=== PATIENT | female | born 1935 | race Caucasian/White ===

== ENCOUNTER 2018-12-15 23:05 | Inpatient (IN) | payer MEDICARE ==
[~2018-12-15] VITALS: Ht 160 cm; Wt 49.9 kg
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
[2018-12-16] MEDS ORDERED: LORAZEPAM 0.5 MG TABLET PO PRN (00:30)
[2018-12-16] MEDS ORDERED: ACETAMINOPHEN 325 MG TABLET PO PRN (00:30)
[2018-12-16] MEDS ORDERED: MAG HYDROX/AL HYDROX/SIMETH 30 ML UDC PO PRN (00:30)
[2018-12-16] MEDS ORDERED: BLOOD SUGAR DIAGNOSTIC 1 EACH STRIP IN ONE (00:30)
[2018-12-16] MEDS ORDERED: MAGNESIUM HYDROXIDE 30 ML UDC PO PRN (00:30)
[2018-12-16] MEDS ORDERED: TEMAZEPAM 7.5 MG CAPSULE PO PRN (00:30)
[2018-12-16] MEDS ORDERED: MAGN400T26 PO (00:43)
[2018-12-16] MEDS ORDERED: ASPI-605 PO (00:44)
[2018-12-16] MEDS ORDERED: DESV50TA PO (00:45)
[2018-12-16] MEDS ORDERED: LEVO125T8 PO (00:47)
[2018-12-16] MEDS ORDERED: RANI300T4 PO (00:48)
[2018-12-16] MEDS ORDERED: OLME20TA23 PO (00:50)
[2018-12-16] MEDS ORDERED: CYAN-51 PO (00:51)
[2018-12-16] MEDS ORDERED: CHOL200026 PO (00:51)
[2018-12-16] MEDS ORDERED: ESOM20CA PO (00:52)
[2018-12-16 02:06] VITALS: BP 127/69
[2018-12-16] MEDS ORDERED: ESOMEPRAZOLE MAG TRIHYDRATE 20 MG CAPSULE.DR PO SCH (07:00)
[2018-12-16 08:00] VITALS: BP 120/66
[2018-12-16] MEDS: LEVOTHYROXINE SODIUM 125 MCG TABLET PO SCH (08:25)
[2018-12-16] MEDS: ASPIRIN EC 81 MG TABLET.DR PO SCH (08:26)
[2018-12-16] MEDS: CHOLECALCIFEROL 1,000 UNIT TABLET (VIT D3) PO SCH (08:26)
[2018-12-16] MEDS: CYANOCOBALAMIN 500 MCG TABLET PO SCH (08:26)
[2018-12-16] MEDS: PANTOPRAZOLE 40 MG TABLET.DR PO SCH (08:52)
[2018-12-16] MEDS: LOSARTAN POTASSIUM 50 MG TABLET PO SCH (08:52)
[2018-12-16] MEDS: MAGNESIUM OXIDE 400 MG TABLET PO SCH (08:52)
--- NOTE | 2018-12-16 15:50 | NUR ---
Group Note: SW went to patient's room to invite patient to attend today's support group at 2:45pm in the activities room, regarding positive coping mechanisms. Patient presented laying on her bed sleeping. SW attempted to wake patient but they remained sleeping.
[2018-12-16 16:00] VITALS: BP 111/65
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
[2018-12-16 20:16] VITALS: BP 99/50
[2018-12-16] MEDS: FAMOTIDINE (20 MG) 20 MG TABLET PO SCH (22:21)
[2018-12-17 00:55] LABS: APPEARANCE,URINE CLEAR (CLEAR); BILIRUBIN,URINE NEGATIVE (NEGATIVE); BLOOD, URINE NEGATIVE Ery/uL (NEGATIVE); COLOR,URINE YELLOW (YELLOW); KETONES,URINE 1+ (NEGATIVE); LEUKOCYTE ESTERASE ,URINE TRACE (NEGATIVE); NITRITE, URINE NEGATIVE (NEGATIVE); PH,URINE 6.5 (5.0-8.0); PROTEIN,URINE NEGATIVE (NEGATIVE); UGLUCOSE NEGATIVE (NEGATIVE); UROBILINOGEN,URINE 0.2 EU/dL (0.2)
[2018-12-17 01:19] LABS: BACTERIA,URINE Few /HPF (None Seen); RBC,URINE 0-2 /HPF (0-2); SQUAMOUS EPITHELIAL CELL,UR Few /HPF (None Seen)
[2018-12-17 06:49] LABS: BASOPHILS % (AUTO) 0.6 % (0.0-2.0); EOSINOPHILS % (AUTO) 2.9 % (0.0-6.0); HEMATOCRIT 39 % (33-45); HEMOGLOBIN 12.6 g/dL (11.5-14.8); LYMPHOCYTES # (AUTO) 1.4 /CMM (0.8-4.8); LYMPHOCYTES % (AUTO) 31.6 % (20.0-44.0); MEAN CORPUSCULAR HGB CONC 33 g/dl (31.0-36.0); MEAN CORPUSCULAR VOLUME 89 fL (82-100); MONOCYTES # (AUTO) 0.4 /CMM (0.1-1.30); MONOCYTES % (AUTO) 8.6 % (2.0-12.0); NEUTROPHILS # (AUTO) 2.5 /CMM (1.8-8.9); NEUTROPHILS % (AUTO) 56.3 % (43.0-81.0); PLATELET COUNT (AUTO) 165 /CMM (150-450); RED BLOOD CELL COUNT(AUTO) 4.33 MIL/uL (4.0-5.2); WHITE BLOOD COUNT (AUTO) 4.5 K/uL (4.3-11.0)
[2018-12-17 06:50] LABS: CALCIUM, SERUM 9.1 mg/dL (8.5-10.1); CREATININE 0.7 mg/dL (0.6-1.3)
[2018-12-17 07:05] LABS: THYROID STIMULATING HORMONE 0.047 uIU/mL (0.358-3.74)
[2018-12-17 08:00] VITALS: BP 129/64
[2018-12-17] MEDS: MAGNESIUM OXIDE 400 MG TABLET PO SCH (08:39)
[2018-12-17] MEDS: CHOLECALCIFEROL 1,000 UNIT TABLET (VIT D3) PO SCH (08:40)
[2018-12-17] MEDS: LEVOTHYROXINE SODIUM 125 MCG TABLET PO SCH (08:40)
--- NOTE | 2018-12-17 08:40 | NUR ---
SW received a call from pts daughter in law Cassandra at bedside [phone] who requested a call from psychiatrist Dr. Suarez to discuss pts diagnoses and treatment. Cassandra also discussed placement options for pt as she stated that pt is unable to live on her own due to her current financial situation. SAIRA explained that if pt refuses alternative placement SW is unable to force pt to discharge to an alternative placement because pt is currently making decisions for herself. Daughter in law understood.
[2018-12-17] MEDS: ASPIRIN EC 81 MG TABLET.DR PO SCH (08:41)
[2018-12-17] MEDS: LOSARTAN POTASSIUM 50 MG TABLET PO SCH (08:41)
[2018-12-17] MEDS: CYANOCOBALAMIN 500 MCG TABLET PO SCH (08:41)
[2018-12-17] MEDS: PANTOPRAZOLE 40 MG TABLET.DR PO SCH (08:42)
[2018-12-17] MEDS: DULOXETINE HCL 30 MG CAPSULE.DR PO SCH (08:49)
--- NOTE | 2018-12-17 10:20 | NUR ---
INITIAL DISCHARGE NOTE: Patient wishes to return home [address] [facility] [address] . SAIRA will help form a safe and proper discharge in collaboration with MD and daughter in law Cassandra [phone].
--- NOTE | 2018-12-17 11:08 | NUR ---
INDIVIDUAL SESSION: SW discussed discharge plan and home environment with pt, pt stated that she wishes to return home as she feels safe there and stated that she does not feel safe anywhere else. Pt stated that she does not wish to be discharged to a SNF and or any other place. Pt also mentioned that she is not being manipulated, coerced, or scammed and that she is just a victim if identify fraud. SW discussed pts treatment and current feelings of depression. Pt appears depressed with sad affect and is withdrawn and isolative. Pt has been sleeping all day and has not been visible on the unit. Pt stated that she just wants to sleep and stay in her room as she does not feel safe being out in the unit. SW encouraged pt to attend group and participate in group milieu as that is part of her treatment while in the hospital and will help her get discharged quicker. Pt stated that she just wanted to go home already and will think about attending group.
--- NOTE | 2018-12-17 14:40 | NUR ---
SW received a call from pts daughter in law Cassandra at bedside [phone] informing SW that tomorrow 12/18/18 her and a private healthcare business performance manager will be coming at 5:00pm to talk to pt.
[2018-12-17 16:00] VITALS: BP 104/57
[2018-12-17] MEDS: LEVOFLOXACIN (500MG) 500 MG TABLET PO SCH (16:20)
[2018-12-17 20:20] VITALS: BP 95/71
[2018-12-17] MEDS: FAMOTIDINE (20 MG) 20 MG TABLET PO SCH (21:32)
[2018-12-18 08:00] VITALS: BP 113/63
[2018-12-18] MEDS: CHOLECALCIFEROL 1,000 UNIT TABLET (VIT D3) PO SCH (08:50)
[2018-12-18] MEDS: PANTOPRAZOLE 40 MG TABLET.DR PO SCH (08:50)
[2018-12-18] MEDS: DULOXETINE HCL 30 MG CAPSULE.DR PO SCH (08:50)
[2018-12-18] MEDS: MAGNESIUM OXIDE 400 MG TABLET PO SCH (08:50)
[2018-12-18] MEDS: ASPIRIN EC 81 MG TABLET.DR PO SCH (08:50)
[2018-12-18] MEDS: CYANOCOBALAMIN 500 MCG TABLET PO SCH (08:51)
[2018-12-18] MEDS: LOSARTAN POTASSIUM 50 MG TABLET PO SCH (08:51)
--- NOTE | 2018-12-18 08:59 | NUR ---
RN NOTE: CJ MISSING LEVOTHYROXINE. INFORMED PHARMACY. AWAITING MEDICATION ARRIVAL TO ADMINISTER.
[2018-12-18] MEDS: LEVOTHYROXINE SODIUM 112 MCG TABLET PO SCH (10:17)
[2018-12-18 16:00] VITALS: BP 121/71
--- NOTE | 2018-12-18 16:26 | NUR ---
GROUP NOTE: SW encourage pt to participate in group therapy on this present day discussing the topic of "support systems." Pt was asleep and was not easily aroused.
[2018-12-18] MEDS: LEVOFLOXACIN (500MG) 500 MG TABLET PO SCH (16:33)
--- NOTE | 2018-12-18 17:29 | NUR ---
RN NOTE: CONTACTED DR STEVENS AND INFORMED HER TO VISIT THE PATIENT TOMORROW.
[2018-12-18 20:00] VITALS: BP 98/60
[2018-12-18 21:09] VITALS: BP 98/60
[2018-12-18] MEDS: FAMOTIDINE (20 MG) 20 MG TABLET PO SCH (21:35)
[2018-12-19 08:00] VITALS: BP 102/58
[2018-12-19] MEDS: PANTOPRAZOLE 40 MG TABLET.DR PO SCH (08:16)
[2018-12-19] MEDS: CHOLECALCIFEROL 1,000 UNIT TABLET (VIT D3) PO SCH (08:16)
[2018-12-19] MEDS: MAGNESIUM OXIDE 400 MG TABLET PO SCH (08:16)
[2018-12-19] MEDS: DULOXETINE HCL 30 MG CAPSULE.DR PO SCH (08:16)
[2018-12-19] MEDS: CYANOCOBALAMIN 500 MCG TABLET PO SCH (08:16)
[2018-12-19] MEDS: LOSARTAN POTASSIUM 50 MG TABLET PO SCH (08:17)
[2018-12-19] MEDS: ASPIRIN EC 81 MG TABLET.DR PO SCH (08:17)
[2018-12-19] MEDS: LEVOTHYROXINE SODIUM 112 MCG TABLET PO SCH (08:28)
[2018-12-19] MEDS: LEVOFLOXACIN (500MG) 500 MG TABLET PO SCH (15:16)
[2018-12-19 16:00] VITALS: BP 112/57
[2018-12-19 20:54] VITALS: BP 108/68
[2018-12-19] MEDS: FAMOTIDINE (20 MG) 20 MG TABLET PO SCH (21:36)
[2018-12-20 08:00] VITALS: BP 114/68
[2018-12-20] MEDS: ASPIRIN EC 81 MG TABLET.DR PO SCH (08:39)
[2018-12-20] MEDS: PANTOPRAZOLE 40 MG TABLET.DR PO SCH (08:39)
[2018-12-20] MEDS: LOSARTAN POTASSIUM 50 MG TABLET PO SCH (08:40)
[2018-12-20] MEDS: CHOLECALCIFEROL 1,000 UNIT TABLET (VIT D3) PO SCH (08:41)
[2018-12-20] MEDS: MAGNESIUM OXIDE 400 MG TABLET PO SCH (08:41)
[2018-12-20] MEDS: CYANOCOBALAMIN 500 MCG TABLET PO SCH (08:41)
[2018-12-20] MEDS: DULOXETINE HCL 30 MG CAPSULE.DR PO SCH (08:41)
[2018-12-20] MEDS: LEVOTHYROXINE SODIUM 112 MCG TABLET PO SCH (08:43)
[2018-12-20 10:00] VITALS: BP 114/68
[2018-12-20 16:00] VITALS: BP 120/59
--- NOTE | 2018-12-20 17:43 | NUR ---
GPS RN NOTE PATIENT EATING IN DINING GOYAL, SOCIALIZING. PATIENT IN NO ACUTE DISTRESS. WILL CONTINUE TO MONITOR.
--- NOTE | 2018-12-20 19:00 | NUR ---
GPS RN NOTE HEARING AID IN PATIENTS RIGHT AND LEFT EAR. ENDORSED TO CHARGE BOTH HEARING AIDS AT NIGHT TO BEE WORKER NURSE.
--- NOTE | 2018-12-20 19:30 | NUR ---
GPS RN NOTE, RECEIVED PATIENT AWAKE AND IN JANAE CHAIR, NO S/S OR COMPLAINTS OF PAIN AT THIS TIME. PATIENT IS DISPLAYING NO S/S OF APPARENT DISTRESS AT THIS TIME. PATIENT BREATHING IS UNLABORED WITH EQUAL RISE AND FALL OF THE CHEST. PATIENT IS ALERT AND ORIENTED X 3 ON ROOM AIR WITH A SPO2 99 %. PATIENT IS COMPLIANT WITH MEDICATION, DISORGANIZED, CALM, COOPERATIVE. PATIENT DENIES SUICIDE IDEATIONS AND HOMICIDAL IDEATIONS AT THIS TIME. PATIENT ASSISTED WITH TURNING AND REPOSITIONING Q2 HR AND PRN FOR COMFORT AND CIRCULATION. PATIENT HAS NO NEEDS AT THIS TIME. PATIENT EDUCATED ON THE USE OF THE CALL ALVARADO. PATIENT BED SIDE RAILS UP X 2 FOR SAFETY, BED IS LOCKED AND LOW. WILL CONTINUE TO MONITOR Q15 MIN WITH THE HELP OF STAFF TO MAINTAIN SAFETY.
[2018-12-20 21:23] VITALS: BP 103/65
[2018-12-20] MEDS: FAMOTIDINE (20 MG) 20 MG TABLET PO SCH (22:08)
[2018-12-21 08:00] VITALS: BP 127/64
[2018-12-21] MEDS: DULOXETINE HCL 30 MG CAPSULE.DR PO SCH (09:26)
[2018-12-21] MEDS: CHOLECALCIFEROL 1,000 UNIT TABLET (VIT D3) PO SCH (09:26)
[2018-12-21] MEDS: PANTOPRAZOLE 40 MG TABLET.DR PO SCH (09:26)
[2018-12-21] MEDS: ASPIRIN EC 81 MG TABLET.DR PO SCH (09:27)
[2018-12-21] MEDS: CYANOCOBALAMIN 500 MCG TABLET PO SCH (09:27)
[2018-12-21] MEDS: LEVOTHYROXINE SODIUM 112 MCG TABLET PO SCH (09:38)
[2018-12-21] MEDS: MAGNESIUM OXIDE 400 MG TABLET PO SCH (09:38)
[2018-12-21] MEDS: LOSARTAN POTASSIUM 50 MG TABLET PO SCH (11:40)
--- NOTE | 2018-12-21 12:37 | NUR ---
INTERVENTION: SW and psychiatrist Dr. Suarez spoke with pt regarding her treatment and discharge plan. Pt agreed to take an antipsychotic and also agreed to a short term SNF placement as pt is currently unable to make decisions on her own and is unable to live alone at the moment as her bank has frozen all of her accounts and she currently has no source of income. Pt agreed to be discharged to a SNF as long as she is able to return to her home once she's stable and her son and daughter in law have helped her with her finances. Pt appeared with disorganized thought process but was cooperative and engaged in conversation.
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
--- NOTE | 2018-12-21 14:27 | NUR ---
COOPERATIVE,SOCIALIZING,COMPLIANT. IN RM.
--- NOTE | 2018-12-21 15:30 | NUR ---
GROUP NOTE: SW encourage pt to participate in group therapy in this present day discussing the topic of "reality-testing." Pt was in the shower and unable to participate.
[2018-12-21 16:00] VITALS: BP 130/75
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
[2018-12-21 20:21] VITALS: BP 122/67
[2018-12-21] MEDS: FAMOTIDINE (20 MG) 20 MG TABLET PO SCH (21:22)
[2018-12-21] MEDS: QUETIAPINE FUMARATE 25 MG TABLET PO SCH (21:22)
[2018-12-22 08:00] VITALS: BP 106/57
[2018-12-22] MEDS: LOSARTAN POTASSIUM 50 MG TABLET PO SCH (09:00)
--- NOTE | 2018-12-22 09:28 | NUR ---
SW received a call from pts daughter in law Trujillo at bedside [phone] who provided SW with a list of SNF's she woudl like SW to refer pt to. SAIRA faxed SNF referrals to the following: [facility] [address] [place], [place] [id number] [facility] [address] [place], [place] [id number] [facility] [address] [place] [address] [facility] [address] [place] [address] [facility] [address] [place] [address] [facility] [address] [place] [address]
--- NOTE | 2018-12-22 09:43 | NUR ---
SAIRA contacted JAE Toussaint Claims Director to the Commercial Crimes Division and Financial Crime Section at [facility] [place] [facility] Address: [address] [place] [address] who confirmed she is currently investigating.
--- NOTE | 2018-12-22 11:08 | NUR ---
SW received a call from Teri, public relations coordinator at [facility] [address] [place] [address] stating that she is unable to take pt as there are currently no beds available in the facility.
--- NOTE | 2018-12-22 11:23 | NUR ---
SW received a call from Erika, media coordinator at [facility] [id number] [place] [address] stating that currently the facility [facility]ake snot have nay female beds available.
[2018-12-22] MEDS: PANTOPRAZOLE 40 MG TABLET.DR PO SCH (11:38)
[2018-12-22] MEDS: CYANOCOBALAMIN 500 MCG TABLET PO SCH (11:38)
--- NOTE | 2018-12-22 11:38 | NUR ---
SAIRA contacted pts daughter in law Cassandra at bedside [phone] and informed her pts PROBABLE CAUSE hearing has been moved up to 1230 on this present day. Cassandra stated she and pts son Michael will be attending.
[2018-12-22] MEDS: ASPIRIN EC 81 MG TABLET.DR PO SCH (11:39)
[2018-12-22] MEDS: MAGNESIUM OXIDE 400 MG TABLET PO SCH (11:39)
[2018-12-22] MEDS: CHOLECALCIFEROL 1,000 UNIT TABLET (VIT D3) PO SCH (11:39)
[2018-12-22] MEDS: DULOXETINE HCL 30 MG CAPSULE.DR PO SCH (11:39)
[2018-12-22] MEDS: LEVOTHYROXINE SODIUM 112 MCG TABLET PO SCH (11:51)
--- NOTE | 2018-12-22 15:37 | NUR ---
Group Note: SW encouraged the pt to participate in group therapy on 12/22/18 at 2pm discussing the topic of discharge planning. Pt stated that she did not want to engage in group therapy because she was exhausted and already had a "meeting" to discuss that earlier in the day. The SW stated that was her probable cause hearing but the pt stated that she does not need group.
[2018-12-22 16:00] VITALS: BP 100/59
[2018-12-22 20:03] VITALS: BP 110/58
[2018-12-22] MEDS: QUETIAPINE FUMARATE 25 MG TABLET PO SCH (21:00)
[2018-12-22] MEDS: FAMOTIDINE (20 MG) 20 MG TABLET PO SCH (21:00)
[2018-12-23] MEDS: PANTOPRAZOLE 40 MG TABLET.DR PO SCH (07:28)
[2018-12-23] MEDS: LEVOTHYROXINE SODIUM 112 MCG TABLET PO SCH (07:28)
[2018-12-23 08:00] VITALS: BP 110/58
[2018-12-23] MEDS: CYANOCOBALAMIN 500 MCG TABLET PO SCH (08:41)
[2018-12-23] MEDS: DULOXETINE HCL 30 MG CAPSULE.DR PO SCH (08:41)
[2018-12-23] MEDS: MAGNESIUM OXIDE 400 MG TABLET PO SCH (08:41)
[2018-12-23] MEDS: LOSARTAN POTASSIUM 50 MG TABLET PO SCH (08:42)
[2018-12-23] MEDS: ASPIRIN EC 81 MG TABLET.DR PO SCH (08:42)
[2018-12-23] MEDS: CHOLECALCIFEROL 1,000 UNIT TABLET (VIT D3) PO SCH (08:42)
--- NOTE | 2018-12-23 10:15 | NUR ---
SW contacted Sherice, social work coordinator at [facility] [id number] [place] [address] who stated facility is currently full and does not have any beds available.
--- NOTE | 2018-12-23 10:16 | NUR ---
SW contacted Jordyn, early childhood education coordinator [facility] [address] [place] [address] stating that she needs to speak to the DON and administration to see if pt can be accepted.
--- NOTE | 2018-12-23 10:29 | NUR ---
SAIRA faxed SNF referral to Dequan, health services coordinator at [facility] Address: [address] [facility], [place] [address] for review.
--- NOTE | 2018-12-23 11:23 | NUR ---
SW received a call from Luz, erosion control coordinator at [facility] Address: [address] [place] [address] stating the facility cannot accept pt.
--- NOTE | 2018-12-23 11:51 | NUR ---
SAIRA faxed SNF referral to Rekha, patient appointment coordinator at [facility] Address: [address] [facility], [place] [address] for review.
--- NOTE | 2018-12-23 14:45 | NUR ---
SW received a call from Rekha, residential coordinator at [facility] Address: [address] [facility], [place] [address] stating that jessica Mckeon will be coming on Friday to assess the pt.
[2018-12-23 16:00] VITALS: BP 101/91
[2018-12-23 20:26] VITALS: BP 100/50
[2018-12-23] MEDS: FAMOTIDINE (20 MG) 20 MG TABLET PO SCH (21:14)
[2018-12-23] MEDS: QUETIAPINE FUMARATE 25 MG TABLET PO SCH (21:14)
[2018-12-24] MEDS: PANTOPRAZOLE 40 MG TABLET.DR PO SCH (07:38)
[2018-12-24] MEDS: LEVOTHYROXINE SODIUM 112 MCG TABLET PO SCH (07:38)
[2018-12-24 08:00] VITALS: BP 100/53
[2018-12-24] MEDS: DULOXETINE HCL 30 MG CAPSULE.DR PO SCH (08:26)
[2018-12-24] MEDS: CHOLECALCIFEROL 1,000 UNIT TABLET (VIT D3) PO SCH (08:26)
[2018-12-24] MEDS: MAGNESIUM OXIDE 400 MG TABLET PO SCH (08:26)
[2018-12-24] MEDS: CYANOCOBALAMIN 500 MCG TABLET PO SCH (08:27)
[2018-12-24] MEDS: ASPIRIN EC 81 MG TABLET.DR PO SCH (08:27)
[2018-12-24] MEDS: LOSARTAN POTASSIUM 50 MG TABLET PO SCH (08:27)
--- NOTE | 2018-12-24 11:21 | NUR ---
SAIRA called Layla ([phone]) from [facility] and stated that the notes in the system show that the pt is not suicidal and the pt would be appropriate for their facility. She stated that she is willing to consider the pt but would like notes to be faxed over.
--- NOTE | 2018-12-24 11:22 | NUR ---
SAIRA faxed a referral to [facility] with attention to Layla to the fax number: [phone].
--- NOTE | 2018-12-24 15:32 | NUR ---
Group Note: SW encouraged pt to attend group therapy on 12/24/18 at 2:30pm discussing anger management for when they are in the hospital and for once they are discharged but the pt was unable to attend. Pt is sleeping and is not easily aroused.
[2018-12-24 16:00] VITALS: BP 120/60
[2018-12-24 20:00] VITALS: BP 121/71
[2018-12-24] MEDS: FAMOTIDINE (20 MG) 20 MG TABLET PO SCH (21:23)
[2018-12-24] MEDS: QUETIAPINE FUMARATE 25 MG TABLET PO SCH (21:23)
[2018-12-25 08:00] VITALS: BP 131/75
[2018-12-25] MEDS: CYANOCOBALAMIN 500 MCG TABLET PO SCH (09:09)
[2018-12-25] MEDS: CHOLECALCIFEROL 1,000 UNIT TABLET (VIT D3) PO SCH (09:09)
[2018-12-25] MEDS: LEVOTHYROXINE SODIUM 112 MCG TABLET PO SCH (09:09)
[2018-12-25] MEDS: ASPIRIN EC 81 MG TABLET.DR PO SCH (09:10)
[2018-12-25] MEDS: PANTOPRAZOLE 40 MG TABLET.DR PO SCH (09:10)
[2018-12-25] MEDS: DULOXETINE HCL 30 MG CAPSULE.DR PO SCH (09:10)
[2018-12-25] MEDS: MAGNESIUM OXIDE 400 MG TABLET PO SCH (09:10)
[2018-12-25] MEDS: LOSARTAN POTASSIUM 50 MG TABLET PO SCH (09:11)
--- NOTE | 2018-12-25 11:44 | NUR ---
Cassandra ([phone]), pts daughter in law, called the SW and stated that the pt should be assessed by [facility] today and that they are not looking into [place] as a placement option and would rather have a referral sent out to [facility].
--- NOTE | 2018-12-25 12:56 | NUR ---
William ([phone]) from [facility] came to assess the pt due to the history and physical stating that the pt had made a prior suicide attempt. SW stated that the attempt was made 50 years ago and that she has been a pleasant pt since being hospitalized. Once they assessed the pt, they stated that she seemed appropriate for their facility and once they speak to their networking administrator and will inform the SW once they make a decision.
--- NOTE | 2018-12-25 13:00 | NUR ---
SW called Cassandra ([phone]), pts daughter in law and informed her that the pt was assessed by [facility] and they were fairly positive that the pt will be accepted.
--- NOTE | 2018-12-25 13:56 | NUR ---
Linda ([phone]) from [facility] contacted the SW and stated that the pt was accepted to their facility. SW stated that the pt will be discharged their facility on Friday.
--- NOTE | 2018-12-25 14:02 | NUR ---
SAIRA called Cassandra ([phone]), pts daughter in law, and informed her that the pt was accepted to [facility].
[2018-12-25 16:00] VITALS: BP 129/79
--- NOTE | 2018-12-25 18:47 | NUR ---
GPS/RN-NOTES X2 HEARING AID WITH THE PATIENT AT THIS TIME, WILL ENDORSE TO INCOMING NURSE FOR CONTINUITY OF CARE.
[2018-12-25 20:58] VITALS: BP 116/75
[2018-12-25] MEDS: DONEPEZIL 5 MG TABLET PO SCH (21:18)
[2018-12-25] MEDS: QUETIAPINE FUMARATE 25 MG TABLET PO SCH (21:18)
[2018-12-25] MEDS: FAMOTIDINE (20 MG) 20 MG TABLET PO SCH (21:20)
[2018-12-26 08:00] VITALS: BP 105/56
[2018-12-26] MEDS: CHOLECALCIFEROL 1,000 UNIT TABLET (VIT D3) PO SCH (08:37)
[2018-12-26] MEDS: DULOXETINE HCL 30 MG CAPSULE.DR PO SCH (08:37)
[2018-12-26] MEDS: LEVOTHYROXINE SODIUM 112 MCG TABLET PO SCH (08:37)
[2018-12-26] MEDS: CYANOCOBALAMIN 500 MCG TABLET PO SCH (08:37)
[2018-12-26] MEDS: ASPIRIN EC 81 MG TABLET.DR PO SCH (08:38)
[2018-12-26] MEDS: MAGNESIUM OXIDE 400 MG TABLET PO SCH (08:38)
[2018-12-26] MEDS: PANTOPRAZOLE 40 MG TABLET.DR PO SCH (08:38)
[2018-12-26] MEDS: LOSARTAN POTASSIUM 50 MG TABLET PO SCH (08:40)
[2018-12-26 16:00] VITALS: BP 100/61
[2018-12-26 20:24] VITALS: BP 117/56
[2018-12-26] MEDS: QUETIAPINE FUMARATE 25 MG TABLET PO SCH (21:25)
[2018-12-26] MEDS: DONEPEZIL 5 MG TABLET PO SCH (21:25)
[2018-12-26] MEDS: FAMOTIDINE (20 MG) 20 MG TABLET PO SCH (21:25)
--- NOTE | 2018-12-27 07:30 | NUR ---
PT RECEIVED RESTING COMFORTABLY IN BED WITH EYES CLOSED. NO S/S OR C/O PAIN OR DISTRESS NOTED. SIDE RAILS UP X2, WILL CONTINUE PLAN OF CARE.
[2018-12-27 08:00] VITALS: BP 137/70
[2018-12-27] MEDS: CYANOCOBALAMIN 500 MCG TABLET PO SCH (10:10)
[2018-12-27] MEDS: CHOLECALCIFEROL 1,000 UNIT TABLET (VIT D3) PO SCH (10:11)
[2018-12-27] MEDS: MAGNESIUM OXIDE 400 MG TABLET PO SCH (10:11)
[2018-12-27] MEDS: PANTOPRAZOLE 40 MG TABLET.DR PO SCH (10:11)
[2018-12-27] MEDS: LOSARTAN POTASSIUM 50 MG TABLET PO SCH (10:11)
[2018-12-27] MEDS: ASPIRIN EC 81 MG TABLET.DR PO SCH (10:12)
[2018-12-27] MEDS: LEVOTHYROXINE SODIUM 112 MCG TABLET PO SCH (10:12)
[2018-12-27] MEDS: DULOXETINE HCL 30 MG CAPSULE.DR PO SCH (10:20)
[2018-12-27 16:00] VITALS: BP 104/68
[2018-12-27 20:23] VITALS: BP 159/71
[2018-12-27] MEDS: DONEPEZIL 5 MG TABLET PO SCH (21:06)
[2018-12-27] MEDS: FAMOTIDINE (20 MG) 20 MG TABLET PO SCH (21:06)
[2018-12-27] MEDS: QUETIAPINE FUMARATE 25 MG TABLET PO SCH (21:06)
[2018-12-28 08:00] VITALS: BP 118/55
[2018-12-28] MEDS: CHOLECALCIFEROL 1,000 UNIT TABLET (VIT D3) PO SCH (08:48)
[2018-12-28] MEDS: MAGNESIUM OXIDE 400 MG TABLET PO SCH (08:48)
[2018-12-28 08:49] VITALS: BP 118/55
[2018-12-28] MEDS: PANTOPRAZOLE 40 MG TABLET.DR PO SCH (08:49)
[2018-12-28] MEDS: LOSARTAN POTASSIUM 50 MG TABLET PO SCH (08:49)
[2018-12-28] MEDS: ASPIRIN EC 81 MG TABLET.DR PO SCH (08:49)
[2018-12-28] MEDS: CYANOCOBALAMIN 500 MCG TABLET PO SCH (08:49)
[2018-12-28] MEDS: DULOXETINE HCL 30 MG CAPSULE.DR PO SCH (08:49)
[2018-12-28] MEDS: LEVOTHYROXINE SODIUM 112 MCG TABLET PO SCH (08:49)
--- NOTE | 2018-12-28 10:06 | NUR ---
Cassandra ([phone]), pts daughter in law, called the SW to confirm that the pt will be discharged today around 11AM. SW stated that the ambulance has been ordered and that she can arrive before the pts discharge time to visit Medical Records.
--- NOTE | 2018-12-28 12:22 | NUR ---
Discharge Note: Pt was discharged to [facility] located at [address] [place] [address]; ([phone]). Pt was transported via [facility] at 11AM. Pt�s daughter in law, Cassandra ([phone]), was informed of the discharge. Upon discharge, the pt appeared to be in a euthymic mood and presented with a calm and pleasant affect. Pt denied both suicidal and homicidal ideation as well as auditory and visual hallucinations. Pt will be under the care of her psychiatrist, Dr. Aliza Suarez, located at [address] [facility] [address], [place] [address]; and her ski lift attendant, Dr. John Gunter, located at [address] [facility], [address] [place] [address]; .
--- NOTE | 2018-12-28 14:38 | NUR ---
ETCHER PHOTOENGRAVING NOTE: PATIENT IS AN 79 YEAR OLD FEMALE DISCHARGED TO [facility] LOCATED AT [address] [facility] [address] . PATIENT IS IN STABLE CONDITION. VSS. NO ACUTE DISTRESS NOTED. NO COMPLAINTS. COMPLIANT WITH MEDICATION MANAGEMENT. COOPERATIVE WITH PLAN OF CARE. PSYCHIATRIC TREATMENT PLANS MET. MEDICAL TREATMENT PLANS DEFERRED FOR CONTINUAL MONITORING. DENIES SI/HI VAH AT THE TIME OF DISCHARGE. WOUND PICTURES TAKEN AND DOCUMENTED IN CHART. EDUCATED PATIENT ABOUT AFTERCARE WITH COPY PROVIDED. RETURNED PERSONAL BELONGINGS TO PATIENT. MEDICATIONS RECONCILED WITH DR LOMBARDI AND DR WADE ALONG WITH PSYCHIATRIC DISCHARGE ORDERS. DISCHARGE PAPERWORK SIGNED. FOR FOLLOW UP WITH PSYCHIATRIST DR LOMBARDI [address] [facility] [address] [facility] [address] [address] B[address] [facility] [address] [facility] [address] WITHIN 1 WEEK. PATIENT LEFT THE [facility] AT 1130 VIA AMBULANCE.
--- NOTE | 2018-12-28 15:16 | NUR ---
SAIRA called Cassandra ([phone]), pts daughter in law, who left a voicemail for her stating that [facility] is not an appropriate placement option. SAIRA stated that the pts daughter in law asked for the pt to be assessed on Friday and once the SW stated that she was accepted the pts daughter in law approved the facility. She stated that she was not made aware that it was a dementia locked facility and stated that she wants the pt to be transferred to [facility]. SAIRA stated that the staff at [facility] can assist her with the transfer.
== END 2018-12-28 11:30 | DRG 885 ==
LOC: GPS 23:28
PROVIDERS: ADMIT Psychiatry & Neurology Psychosomatic Medicine; ATTEND Internal Medicine
DX: F33.2 Major depressive disorder, recurrent severe without psychotic features (principal); F01.50 Vascular dementia, unspecified severity, without behavioral disturbance, psychotic disturbance, mood disturbance, and anxiety; N39.0 Urinary tract infection, site not specified; F23 Brief psychotic disorder; R45.851 Suicidal ideations; F41.9 Anxiety disorder, unspecified; I10 Essential (primary) hypertension; K21.9 Gastro-esophageal reflux disease without esophagitis; E86.0 Dehydration; R79.89 Other specified abnormal findings of blood chemistry; E03.9 Hypothyroidism, unspecified; G31.09 Other frontotemporal neurocognitive disorder; F02.80 Dementia in other diseases classified elsewhere, unspecified severity, without behavioral disturbance, psychotic disturbance, mood disturbance, and anxiety; Z88.2 Allergy status to sulfonamides; Z88.0 Allergy status to penicillin
CPT/HCPCS: 36415; 70450-TC; 71045-TC; 80048-TC; 80061-TC; 81000-TC; 82962-TC; 84439-TC; 84443-TC; 84481; 85025-TC; 87081-TC; 87086-TC